=== PATIENT | male | born 1965 | race Caucasian/White ===

== ENCOUNTER 2022-03-02 18:56 | Emergency (ER) | payer OTHER ==
[~2022-03-02 18:56] MED LIST: GLIPIZIDE ER10 MG PO; GLIPIZIDE ER5 MG PO; JANUVIA50 MG PO; JARDIANCE25 MG PO; LEVOTHYROXINE75 MC1 PO; LISINOPRIL 10MG10 MG PO; PREDNISONE20 MG PO; ROSUVASTATIN CA10 MG PO; VITAMIN D35000 UNIT PO
[2022-03-02 19:19] LABS: BASOPHIL 0.6 % (0-2); HCT 54.3 % (42.0-52.0); LYMPHOCYTE 21.1 % (15-48); MCH 28.3 pg (25.0-31.0); MCHC 33.1 g/dL (32.0-36.0); MCV 85.5 fL (78.0-100.0); MONOCYTE 9.5 % (0-12); MPV 10.3 fL (6.0-9.5); NEUTROPHIL 66.2 % (41-80); NRBC 0; PLT 248 K/uL (150-400); RBC 6.35 M/uL (4.70-6.00); RDW 14.1 % (11.5-14.0); WBC 15.5 K/uL (4.0-10.5)
[2022-03-02 19:25] LABS: INR 1.03 (0.9-1.2); PROTHROMBIN TIME 12.9 SECONDS (11.8-13.4); PTT 29.3 SECONDS (24.4-34.7)
[2022-03-02 19:33] LABS: ALBUMIN 4.1 g/dL (3.4-5.0); BILIRUBIN - TOTAL 0.6 mg/dL (0.2-1.0); BUN/CREAT RATIO (CALC) 31.2 RATIO; CREATININE 1.12 mg/dL (0.67-1.17); GLOBULIN (CALCULATION) 3.3 g/dL; TOTAL PROTEIN 7.4 g/dL (6.4-8.2)
== END 2022-03-02 20:01 | disposition other institution (70) ==
LOC: FER 18:56
PROVIDERS: Emergency Medicine
DX: I21.3 ST elevation (STEMI) myocardial infarction of unspecified site (principal)
CPT/HCPCS: 36415; 71045; 80053; 84484; 85025; 85610; 85730; 93005; J1644; J2270; J7030

== ENCOUNTER 2022-05-07 11:54 | Emergency (ER) | payer OTHER ==
[2022-05-07 12:15] LABS: BASOPHIL 1.1 % (0-2); EOSINOPHIL 3.4 % (0-5); HCT 42.1 % (42.0-52.0); HGB 13.7 g/dl (13.2-18.0); LYMPHOCYTE 16.8 % (15-48); MCH 27.5 pg (25.0-31.0); MCHC 32.5 g/dL (32.0-36.0); MCV 84.4 fL (78.0-100.0); MONOCYTE 9.3 % (0-12); MPV 9.5 fL (6.0-9.5); NEUTROPHIL 68.5 % (41-80); NRBC 0; PLT 292 K/uL (150-400); RBC 4.99 M/uL (4.70-6.00); RDW 14.5 % (11.5-14.0); WBC 11.6 K/uL (4.0-10.5)
[2022-05-07 12:25] LABS: INR 1.12 (0.9-1.2); PROTHROMBIN TIME 14.1 SECONDS (11.9-13.9); PTT 29.2 SECONDS (24.9-34.6)
[2022-05-07 12:36] LABS: ALBUMIN 3.7 g/dL (3.4-5.0); BILIRUBIN - TOTAL 0.5 mg/dL (0.2-1.0); BUN/CREAT RATIO (CALC) 16.3 RATIO; CREATININE 1.41 mg/dL (0.67-1.17); GLOBULIN (CALCULATION) 3.8 g/dL; POTASSIUM 4.2 mmol/L (3.5-5.1); TOTAL PROTEIN 7.5 g/dL (6.4-8.2)
[2022-05-07] MEDS ORDERED: PREDNISONE 20MG20 MG PO (16:11)
[2022-05-07] MEDS ORDERED: LEVAQUIN500 MG PO (16:11)
== END 2022-05-07 17:05 | disposition home or self-care (01) ==
LOC: FER 11:54
PROVIDERS: Emergency Medicine
DX: J18.9 Pneumonia, unspecified organism (principal); R07.89 Other chest pain; I10 Essential (primary) hypertension; E11.9 Type 2 diabetes mellitus without complications; Z87.891 Personal history of nicotine dependence; Y95 Nosocomial condition
CPT/HCPCS: 36415; 71045; 71260; 80053; 84484; 85025; 85610; 85730; 93005; J1100; J7030; Q9967